=== PATIENT | female | born 1970 | race Caucasian/White ===

== ENCOUNTER 2016-11-28 11:47 | Emergency (ER) | payer BC, OTHER ==
[~2016-11-28] VITALS: Ht 149.9 cm; Wt 65.0 kg
[~2016-11-28 11:47] MED LIST: ALPR0.5T99 PO; CYCL5TAB PO; IBUP-238 PO; OMEP20CA5 PO
[2016-11-28 11:51] VITALS: BP 115/75; PULSE 97; RESP 16; TEMP 98.2; O2SAT 98
[2016-11-28 12:25] LABS: AUTOMATED NEUTROPHIL # 5.9 TH/MM3 (1.8-7.7); BASOPHIL % 0.1 % (0.0-2.0); EOSINOPHIL # 0.1 TH/MM3 (0-0.4); EOSINOPHIL % 1.2 % (0.0-4.0); HEMATOCRIT 42.6 % (35.0-46.0); HEMO FLAGS DIFF FINAL; LYMPH % 13.5 % (9.0-44.0); MEAN CELL VOLUME 87.4 FL (80.0-100.0); MEAN CORPUSCULAR HEMOGLOBIN 29.9 PG (27.0-34.0); MEAN CORPUSCULAR HGB CONC 34.2 % (32.0-36.0); MONO % 6.5 % (0.0-8.0); NEUT % 78.7 % (16.0-70.0); PLATELET COUNT 227 TH/MM3 (150-450); RED BLOOD COUNT 4.88 MIL/MM3 (4.00-5.30); RED CELL DISTRIBUTION WIDTH 13.6 % (11.6-17.2); WHITE BLOOD COUNT 7.5 TH/MM3 (4.0-11.0)
[2016-11-28 12:27] LABS: BACTERIA, URINE RARE /hpf; BLOOD, URINE NEG (NEG); COMMENT (UR) CULT NOT INDICATED; CULTURE IF INDICATED CULT NOT INDICATED; GLUCOSE,URINE NEG (NEG); KETONE, URINE NEG (NEG); NITRITE,URINE NEG (NEG); SQUAMOUS EPITHELIAL CELL URINE <1 /hpf (0-5); URINE COLOR LIGHT-YELLOW (YELLW/STRAW)
[2016-11-28 12:45] LABS: ALT (GPT) 22 U/L (10-53); ANION GAP 9 MEQ/L (5-15); AST (GOT) 15 U/L (15-37); BICARBONATE 24.3 MEQ/L (21.0-32.0); BLOOD UREA NITROGEN 8 MG/DL (7-18); CHLORIDE 102 MEQ/L (98-107); GLOMERULAR FILTRATION RATE 89 ML/MIN (>89); POTASSIUM 3.4 MEQ/L (3.5-5.1); SODIUM (NA) 135 MEQ/L (136-145)
[2016-11-28 12:47] LABS: ALKALINE PHOSPHATASE 65 U/L (45-117); TOTAL BILIRUBIN ADULT 0.4 MG/DL (0.2-1.0)
[2016-11-28] MEDS ORDERED: ALPR.5 PO (14:04)
[2016-11-28] MEDS ORDERED: ZANTTAB9 PO (14:04)
--- NOTE | 2016-11-28 14:13 | PD ---
HPI Chief Complaint: Abdominal Pain Time Seen by Provider: 14:13 Travel History International Travel<30 days: No Contact w/Intl Traveler<30days: No Traveled to known affect area: No History of Present Illness HPI 46-year-old female presents to the emergency department with complaint of right upper quadrant abdominal pain 2 days. She has had pain like this in the past, 10 years ago, and had an EGD and they told her she had polyps. Pain radiates around to the back. Had vomiting and diarrhea yesterday. No vomiting or diarrhea today. Denies fever. Denies chest pain or shortness of breath. Denies dysuria, hematuria, hematochezia. Describes pain as sharp, intense, and burning. Denies history of abdominal surgery. She took Mylanta with no relief. Currently has an IUD and does not get periods. History of GERD and takes Zantac. No known allergies. Dr. Knight is primary care provider. No other modifying factors or associated signs and symptoms. PFSH Past Medical History Anxiety: Yes Diminished Hearing: No Gastrointestinal Disorders: Yes (GASTRITIS) GERD: Yes Tetanus Vaccination: > 5 Years Influenza Vaccination: No ?: Not LMP: IUD : 3 Para: 1 Miscarriage: 1 : 1 Past Surgical History Section: Yes Tonsillectomy: Yes Other Surgery: Yes (BREAST AUGMENTATION) Social History Alcohol Use: Yes ("SOCIALLY") Tobacco Use: Yes (1 Pack a week) Substance Use: No Allergies-Medications (Allergen,Severity, Reaction): Coded Allergies: No Known Allergies (Verified , 11/28/16) Reported Meds & Prescriptions Reported Meds & Active Scripts Active Reported Zantac 75 (Ranitidine HCl) 75 Mg Tab 75 Mg PO BID Take 30 to 60 minutes before eating food or drinking beverages that cause heartburn. Xanax (Alprazolam) 0.5 Mg Tab 0.5 Mg PO Q6HR PRN Review of Systems Except as stated in HPI: all other systems reviewed are Neg Physical Exam Narrative GENERAL: Well-nourished, well-developed patient, in no acute distress; afebrile , nontoxic-appearing SKIN: Warm and dry. HEAD: Atraumatic. Normocephalic. EYES: Pupils equal and round. No scleral icterus. No injection or drainage. ENT: Mucosa pink and moist. Airway patent. NECK: Trachea midline. CARDIOVASCULAR: Regular rate and rhythm. No murmur appreciated. RESPIRATORY: No accessory muscle use. Clear to auscultation. Breath sounds equal bilaterally. GASTROINTESTINAL: Abdomen soft, tenderness to right upper quadrant, nondistended. Hepatic and splenic margins not palpable. Bowel sounds are active 4 quadrants. Positive Anderson sign. No rebound tenderness. Nonrigid. No guarding. MUSCULOSKELETAL: No obvious deformities. No clubbing. No cyanosis. No edema. BACK: No CVA tenderness. NEUROLOGICAL: Awake and alert. Oriented 3. No obvious cranial nerve deficits. Motor grossly within normal limits. Normal speech. PSYCHIATRIC: Appropriate mood and affect; insight and judgment normal. Data Data Last Documented VS Vital Signs Date Time Temp Pulse Resp B/P Pulse Ox O2 Delivery O2 Flow Rate FiO2 11/28/16 11:51 98.2 97 16 115/75 98 Orders Complete Blood Count With Diff (11/28/16 11:52) Comprehensive Metabolic Panel (11/28/16 11:52) Urinalysis - C+S If Indicated (11/28/16 11:52) Ed Urine Pregnancytest Poc (11/28/16 11:52) Iv Access Insert/Monitor (11/28/16 11:52) Oxygen Administration (11/28/16 11:52) Oximetry (11/28/16 11:52) Lipase (11/28/16 11:52) Us Abdomen Gallbladder (11/28/16 ) Labs Laboratory Tests Test 11/28/16 12:10 White Blood Count 7.5 TH/MM3 Red Blood Count 4.88 MIL/MM3 Hemoglobin 14.6 GM/DL Hematocrit 42.6 % Mean Corpuscular Volume 87.4 FL Mean Corpuscular Hemoglobin 29.9 PG Mean Corpuscular Hemoglobin 34.2 % Concent Red Cell Distribution Width 13.6 % Platelet Count 227 TH/MM3 Mean Platelet Volume 7.4 FL Neutrophils (%) (Auto) 78.7 % Lymphocytes (%) (Auto) 13.5 % Monocytes (%) (Auto) 6.5 % Eosinophils (%) (Auto) 1.2 % Basophils (%) (Auto) 0.1 % Neutrophils # (Auto) 5.9 TH/MM3 Lymphocytes # (Auto) 1.0 TH/MM3 Monocytes # (Auto) 0.5 TH/MM3 Eosinophils # (Auto) 0.1 TH/MM3 Basophils # (Auto) 0.0 TH/MM3 CBC Comment DIFF FINAL Differential Comment Urine Color LIGHT-YELLOW Urine Turbidity CLEAR Urine pH 5.0 Urine Specific [place] 1.004 Urine Protein NEG mg/dL Urine Glucose (UA) NEG mg/dL Urine Ketones NEG mg/dL Urine Occult Blood NEG Urine Nitrite NEG Urine Bilirubin NEG Urine Urobilinogen LESS THAN 2.0 MG/DL Urine Leukocyte Esterase NEG Urine RBC LESS THAN 1 /hpf Urine WBC LESS THAN 1 /hpf Urine Squamous Epithelial <1 /hpf Cells Urine Bacteria RARE /hpf Microscopic Urinalysis Comment CULT NOT INDICATED Sodium Level 135 MEQ/L Potassium Level 3.4 MEQ/L Chloride Level 102 MEQ/L Carbon Dioxide Level 24.3 MEQ/L Anion Gap 9 MEQ/L Blood Urea Nitrogen 8 MG/DL Creatinine 0.71 MG/DL Estimat Glomerular Filtration 89 ML/MIN Rate Random Glucose 97 MG/DL Calcium Level 8.2 MG/DL Total Bilirubin 0.4 MG/DL Aspartate Amino Transf 15 U/L (AST/SGOT) Alanine Aminotransferase 22 U/L (ALT/SGPT) Alkaline Phosphatase 65 U/L Total Protein 6.6 GM/DL Albumin 3.4 GM/DL Lipase 170 U/L [facility] Medical Decision Making Medical Screen Exam Complete: Yes Emergency Medical Condition: Yes Medical Record Reviewed: Yes Differential Diagnosis Cholelithiasis, cholecystitis, GERD Narrative Course 46-year-old female presents with right upper quadrant abdominal pain 2 days. Treatment initiated in triage. Care of patient will be transferred to alternate provider when medical bed is available. Latosha Coleman Nov 28, 2016 14:13
--- NOTE | 2016-11-28 16:14 | PD ---
Physical Exam Date Seen by Provider: Nov 28, 2016 Time Seen by Provider: 16:08 Narrative Workup was initially done in triage. Patient was transferred to ne for further evaluation and disposition. 46-year-old female presents to the emergency department for evaluation of right upper abdominal pain. She states it lasted approximately 2-3 hours. She does report history of the same pain since she was 18 years old. However, this episode was worse than normal. Patient describes a procedure that sounded like an ERCP for gallbladder before in the past. She denies any chronic medical problems. She states she had nausea, vomiting, diarrhea, but states that these have all resolved. She states pain is minimal at this time. GENERAL: Well-developed well-nourished female patient, ambulatory. Afebrile. SKIN: Warm and dry. HEAD: Normocephalic. Atraumatic. EYES: No scleral icterus. No injection or drainage. NECK: Supple, trachea midline. No JVD or lymphadenopathy. CARDIOVASCULAR: Regular rate and rhythm without murmurs, gallops, or rubs. RESPIRATORY: Breath sounds equal bilaterally. No accessory muscle use. Lungs sounds are clear to auscultation. GASTROINTESTINAL: Abdomen soft and nondistended. Minimal tenderness to right upper quadrant. No other abdominal tenderness. MUSCULOSKELETAL: No cyanosis, or edema. BACK: Nontender without obvious deformity. No CVA tenderness. Data Data Last Documented VS Vital Signs Date Time Temp Pulse Resp B/P Pulse Ox O2 Delivery O2 Flow Rate FiO2 11/28/16 11:51 98.2 97 16 115/75 98 Orders Complete Blood Count With Diff (11/28/16 11:52) Comprehensive Metabolic Panel (11/28/16 11:52) Urinalysis - C+S If Indicated (11/28/16 11:52) Ed Urine Pregnancytest Poc (11/28/16 11:52) Iv Access Insert/Monitor (11/28/16 11:52) Oxygen Administration (11/28/16 11:52) Oximetry (11/28/16 11:52) Lipase (11/28/16 11:52) Us Abdomen Gallbladder (11/28/16 ) Labs Laboratory Tests Test 11/28/16 12:10 White Blood Count 7.5 TH/MM3 Red Blood Count 4.88 MIL/MM3 Hemoglobin 14.6 GM/DL Hematocrit 42.6 % Mean Corpuscular Volume 87.4 FL Mean Corpuscular Hemoglobin 29.9 PG Mean Corpuscular Hemoglobin 34.2 % Concent Red Cell Distribution Width 13.6 % Platelet Count 227 TH/MM3 Mean Platelet Volume 7.4 FL Neutrophils (%) (Auto) 78.7 % Lymphocytes (%) (Auto) 13.5 % Monocytes (%) (Auto) 6.5 % Eosinophils (%) (Auto) 1.2 % Basophils (%) (Auto) 0.1 % Neutrophils # (Auto) 5.9 TH/MM3 Lymphocytes # (Auto) 1.0 TH/MM3 Monocytes # (Auto) 0.5 TH/MM3 Eosinophils # (Auto) 0.1 TH/MM3 Basophils # (Auto) 0.0 TH/MM3 CBC Comment DIFF FINAL Differential Comment Urine Color LIGHT-YELLOW Urine Turbidity CLEAR Urine pH 5.0 Urine Specific [place] 1.004 Urine Protein NEG mg/dL Urine Glucose (UA) NEG mg/dL Urine Ketones NEG mg/dL Urine Occult Blood NEG Urine Nitrite NEG Urine Bilirubin NEG Urine Urobilinogen LESS THAN 2.0 MG/DL Urine Leukocyte Esterase NEG Urine RBC LESS THAN 1 /hpf Urine WBC LESS THAN 1 /hpf Urine Squamous Epithelial <1 /hpf Cells Urine Bacteria RARE /hpf Microscopic Urinalysis Comment CULT NOT INDICATED Sodium Level 135 MEQ/L Potassium Level 3.4 MEQ/L Chloride Level 102 MEQ/L Carbon Dioxide Level 24.3 MEQ/L Anion Gap 9 MEQ/L Blood Urea Nitrogen 8 MG/DL Creatinine 0.71 MG/DL Estimat Glomerular Filtration 89 ML/MIN Rate Random Glucose 97 MG/DL Calcium Level 8.2 MG/DL Total Bilirubin 0.4 MG/DL Aspartate Amino Transf 15 U/L (AST/SGOT) Alanine Aminotransferase 22 U/L (ALT/SGPT) Alkaline Phosphatase 65 U/L Total Protein 6.6 GM/DL Albumin 3.4 GM/DL Lipase 170 U/L [facility] Medical Record Reviewed: Yes Supervised Visit with JUAN: No Interpretation(s) Last Impressions Gall Bladder Ultrasound 11/28/16 0000 Signed Impressions: Service Date/Time: Monday, November 28, 2016 14:56 - CONCLUSION: 1. Sludge in the gallbladder. 2. Otherwise, unremarkable study. Cale Comer MD Differential Diagnosis Cholelithiasis versus cholecystitis versus pancreatitis versus cholangitis Narrative Course 46 year old female presents to the emergency department for evaluation of right upper quadrant abdominal pain. She states pain is mostly gone at this time and is mild. Workup was initiated in triage. CBC is unremarkable. CMP shows no acute abnormalities. Lipase is 170. Urinalysis is negative for infection. Urine test is negative. Ultrasound of the gallbladder is ordered and pending. Ultrasound of the gallbladder shows sludge in the gallbladder; otherwise, unremarkable study. I discussed the symptoms and findings with my attending physician, Dr. Patrick, who agrees with plan and disposition. Patient is instructed to follow up with general surgeon outpatient. She is agreeable and would like to go home. She states pain is minimal at this time. She will be discharged with a prescription for Protonix and Lortab for pain. The patient was discharged in stable condition with instructions, including return instructions and follow up instructions. Diagnosis Primary Impression: Gallbladder colic Referrals: General Surgeon call for appointment Patient Instructions: Gallstones (DC), General Instructions Additional Instruction: Take Protonix as directed. Take Lortab as directed as needed for pain. Caution this can make you drowsy so do not drive after taking. Follow-up with a general surgeon. Return to the emergency department for any acute worsening of symptoms including worsening pain, persistent vomiting, fever. Med/Other Pt SpecificInfo: Prescription(s) given Scripts Pantoprazole (Protonix)40 Mg Tab40 Mg PO DAILY #30 TAB Ref 0 Prov:uPrvi Damico 11/28/16 Disposition: 01 DISCHARGE HOME Condition: Stable Purvi Damico Nov 28, 2016 16:13
--- NOTE | 2016-11-28 16:48 | RADRPT ---
EXAM DATE/TIME: 11/28/2016 14:56 [facility] COMPARISON: No previous studies available for comparison. INDICATIONS : Right upper quadrant pain. MEDICAL HISTORY : Gastroesophageal reflux disease. Gastritis. SURGICAL HISTORY : Tonsillectomy. IUD. Breast augmentation. ENCOUNTER: Initial ACUITY: 2 days PAIN SCORE: 5/10 LOCATION: Right upper quadrant MEASUREMENTS: LIVER: 15.4 cm length COMMON DUCT: 5 mm RIGHT KIDNEY: 8.8 x 4.7 x 4.6 cm FINDINGS: LIVER: Normal echotexture without focal lesion or ductal dilatation. The portal system is patent. No ascite s. COMMON DUCT: No intraluminal mass or stone visualized. GALLBLADDER: Contains no stones, demonstrates no wall thickening or pericholecystic fluid. There is some sludge in the gallbladder. PANCREAS: The visualized portions are within normal limits. RIGHT KIDNEY: No evidence of hydronephrosis, stone, or mass. CONCLUSION: 1. Sludge in the gallbladder. 2. Otherwise, unremarkable study. Cale Comer MD on November 28, 2016 at 16:46 Board Certified Radiologist. This report was verified electronically.
[2016-11-28] MEDS ORDERED: PROT40TA PO (17:05)
[2016-11-28] MEDS ORDERED: HYDR-3533 PO (17:07)
== END 2016-11-28 17:47 | disposition home or self-care (01) ==
LOC: NEPA 11:47
DX: K80.20 Calculus of gallbladder without cholecystitis without obstruction (principal); F17.210 Nicotine dependence, cigarettes, uncomplicated
CPT/HCPCS: 76705; 80053; 81001; 83690; 84703; 85025